=== PATIENT | male | born 1990 | race Two or more races ===

== ENCOUNTER 2016-08-05 22:20 | Emergency (ER) | payer SELFPAY ==
[~2016-08-05] VITALS: Ht 175.3 cm; Wt 97.5 kg
[2016-08-05 22:30] VITALS: BP_SYST 134
[2016-08-06 00:26] VITALS: BP_SYST 136
== END 2016-08-06 00:10 | disposition home or self-care (01) ==
LOC: SED 22:20
DX: R10.9 Unspecified abdominal pain (principal); J45.909 Unspecified asthma, uncomplicated
CPT/HCPCS: 74020-TC; 99284

== ENCOUNTER 2016-08-06 06:54 | Emergency (ER) | payer SELFPAY ==
[2016-08-06 08:16] LABS: BASOPHILS # (AUTO) 0.1 K/uL (0.0-0.2); BASOPHILS % (AUTO) 0.9 % (0.0-2.0); EOSINOPHILS # (AUTO) 0.1 K/uL (0.0-0.4); EOSINOPHILS % (AUTO) 1.5 % (0.0-4.0); HEMATOCRIT 43.9 % (36-54); HEMOGLOBIN 14.7 g/dL (14.0-18.0); LYMPHOCYTES # (AUTO) 1.4 K/uL (1.0-5.5); LYMPHOCYTES % (AUTO) 25.1 % (20.5-51.5); MEAN CORPUSCULAR HEMOGLOBIN 28 pg (27-31); MEAN CORPUSCULAR HGB CONC 33 % (32-36); MEAN CORPUSCULAR VOLUME 85 fL (79.0-98.0); MONOCYTES # (AUTO) 0.5 K/uL (0.0-1.0); MONOCYTES % (AUTO) 9.8 % (1.7-9.3); NEUTROPHILS # (AUTO) 3.5 K/uL (1.8-7.7); NEUTROPHILS % (AUTO) 62.7 % (40.0-70.0); PLATELET COUNT (AUTO) 363 K/uL (130-430); RED BLOOD CELL COUNT(AUTO) 5.19 MIL/uL (4.2-6.2); RED CELL DISTRIBUTION WIDTH 12.8 % (9.0-15.0); WHITE BLOOD COUNT (AUTO) 5.6 K/uL (4.8-10.8)
[2016-08-06 08:26] LABS: CALCIUM 9.5 mg/dL (8.4-11.0); CREATININE 0.83 mg/dL (0.55-1.30); POTASSIUM 4.8 mmol/L (3.5-5.1)
[2016-08-06 08:31] LABS: ALBUMIN 3.9 g/dL (3.4-4.8); PROTHROMBIN TIME 11.1 SECS (9.5-12.5); TOTAL BILIRUBIN 0.3 mg/dL (0.0-1.0)
[2016-08-06 09:43] VITALS: BP_SYST 134
== END 2016-08-06 09:43 | disposition home or self-care (01) ==
LOC: SED 06:54
DX: R10.11 Right upper quadrant pain (principal); J45.909 Unspecified asthma, uncomplicated
CPT/HCPCS: 36415; 71020-TC; 80053; 80061; 83880; 84484; 85025; 85379; 85610-TC; 85730-TC; 93005; 99285